=== PATIENT | female | born 1990 | race American Indian/Alaskan Native ===

== ENCOUNTER 2016-11-24 19:01 | Emergency (ER) | payer BC, MEDICAID ==
[2016-11-24 19:54] LABS: Basophils % (Auto) 0.3 % (0.0-1.8); Eosinophils % (Auto) 0.4 % (0.0-4.3); Hematocrit 39.4 % (30.3-42.9); Mean Corpuscular HGB Conc 33 % (30-34); Mean Corpuscular Hemoglobin 27 pg (28-32); Mean Corpuscular Volume 82 fl (79-97); Platelet Count 235 K/mm3 (140-440); Red Blood Count 4.79 M/mm3 (3.65-5.03); Red Cell Distribution Width 13.3 % (13.2-15.2); White Blood Count 11.3 K/mm3 (4.5-11.0)
[2016-11-24 20:09] LABS: Alanine Aminotransferase 18 units/L (7-56); Albumin 4.2 g/dL (3.9-5); Albumin/Globulin Ratio 1.4 %; Alkaline Phosphatase 58 units/L (35-129); Anion Gap 22 mmol/L; Blood Urea Nitrogen 10 mg/dL (7-17); Calcium 9.6 mg/dL (8.4-10.2); Carbon Dioxide 20 mmol/L (22-30); Chloride 95.9 mmol/L (98-107); Glucose 90 mg/dL (65-100); Lipase 25 units/L (13-60); Sodium 134 mmol/L (137-145); Total Protein 7.3 g/dL (6.3-8.2)
[2016-11-24 20:33] LABS: Bacteria,Urine 1+ /HPF (Negative); Bilirubin,Urine NEG (Negative); Blood,Urine NEG (Negative); Ketones,Urine NEG (Negative); Leukocyte Esterase,Urine NEG (Negative); Nitrite,Urine NEG (Negative); Protein,Urine <15 mg/dL mg/dL (Negative); Urobilinogen,Urine < 2.0 mg/dL (<2.0); WBC,Urine < 1.0 /HPF (0.0-6.0)
--- NOTE | 2016-11-24 22:11 | Ultrasound Report ---
FINAL REPORT EXAM: US OB TRANSVAGINAL HISTORY: pain, bleeding COMPARISONS: None. FINDINGS: Transvaginal grayscale, M-mode and color Doppler ultrasound evaluation of the pelvis Single living intrauterine with recorded cardiac activity of 166 beats per minute and crown-rump length of approximately 49 millimeters, which corresponds to estimated gestational age of 11 weeks 4 days and delivery date of 06/11/2017. Within the posterior uterine corpus having mass effect on the gestational sac there is a round heterogeneously hyperechoic mass measuring 2 x 2.1 x 3 cm. A small perigestational hemorrhage is also suggested involving less than 25 percent of the gestational sac surface area. The right ovary measures 3.8 x 2.6 x 2.1 cm and the left ovary measures 3.8 x 1.7 x 3.1 cm. Normal ovarian echotexture bilaterally. IMPRESSION: Single living intrauterine with estimated gestational age of 11 weeks 4 days corresponding to delivery date of 06/11/2017. A small perigestational hemorrhage involves less than 25 percent of the gestational sac surface area. Heterogeneous masslike morphology in the region of the posterior uterine body resulting in mass effect on the gestational sac. Differential diagnosis includes leiomyoma, gestational trophoblastic disease and failed twin . Short interval clinical and sonographic follow-up is recommended. Correlation with quantitative beta HCG is requested. MRI could be considered for persistence/enlargement of this finding. Notification initiated via Jason academic support assistant immediately following the exam.
--- NOTE | 2016-11-24 22:13 | Ultrasound Report ---
FINAL REPORT EXAM: US OB \T\lt; = 14 WEEKS FETUS HISTORY: pain, bleeding COMPARISONS: Transvaginal ultrasound of the same date. FINDINGS: Transabdominal grayscale and color Doppler ultrasound evaluation of the pelvis Single living intrauterine with recorded cardiac activity of 166 beats per minute and crown-rump length of approximately 49 millimeters, which corresponds to estimated gestational age of 11 weeks 4 days and delivery date of 06/11/2017. Within the posterior uterine corpus having mass effect on the gestational sac there is a round heterogeneously hyperechoic mass with suggested internal flow on color Doppler and a centrally hypoechoic to anechoic round region measuring 2 x 2.1 x 3 cm. A small perigestational hemorrhage is also suggested involving less than 25 percent of the gestational sac surface area. The right ovary measures 3.8 x 2.6 x 2.1 cm and the left ovary measures 3.8 x 1.7 x 3.1 cm. Normal ovarian echotexture bilaterally. IMPRESSION: Single living intrauterine with estimated gestational age of 11 weeks 4 days corresponding to delivery date of 06/11/2017. A small perigestational hemorrhage involves less than 25 percent of the gestational sac surface area. Heterogeneous masslike morphology in the region of the posterior uterine body resulting in mass effect on the gestational sac. Differential diagnosis includes leiomyoma, gestational trophoblastic disease and failed twin . Short interval clinical and sonographic follow-up is recommended. Correlation with quantitative beta HCG is requested. MRI could be considered for persistence/enlargement of this finding. Notification initiated via Jason software support technician immediately following the exam.
[2016-11-24] MEDS ORDERED: TYLENOL PO ONE (23:57)
--- NOTE | 2016-11-25 | Emergency Department Report ---
HPI - General Chief Complaint: Abdominal Pain Time Seen by Provider: 11/24/16 23:18 - HPI HPI: This is a 26-year-old -[place] female who presents to the emergency department with the complaint of a one-day history of lower abdominal pain that started earlier today while at work. The patient had one episode of which she had some spotting when she was wiping during urination but that has since stopped. She is at at about 10 weeks. She goes to [facility] [employer]. She is on vitamins. She denies any fever, nausea, vomiting, diarrhea, back pain, vaginal discharge, dysuria and denies any trauma. No recent travel or sick contacts at home. She otherwise denies any past medical history. ED Past Medical Hx - Past Medical History Previous Medical History?: No - Surgical History Past Surgical History?: No - Social History Smoking Status: Never Smoker Substance Use Type: None - Medications Home Medications: Home Medications Medication Instructions Recorded Confirmed Last Taken Type Ibuprofen [Motrin] 600 mg PO Q6H PRN #20 tablet 08/25/13 Unknown Rx Ondansetron [Zofran] 4 mg PO Q6HR PRN #10 tablet 08/25/13 Unknown Rx ED Review of Systems ROS: Stated complaint: 2 MONTHS PREG ABD PAIN Other details as noted in HPI Comment: All other systems reviewed and negative Constitutional: denies: chills, fever Eyes: denies: eye pain, eye discharge, vision change ENT: denies: ear pain, throat pain Respiratory: denies: cough, shortness of breath, wheezing Cardiovascular: denies: chest pain, palpitations Gastrointestinal: abdominal pain. denies: nausea, vomiting Genitourinary: denies: dysuria, discharge Musculoskeletal: denies: back pain, joint swelling, arthralgia Skin: denies: rash, lesions Neurological: denies: headache, weakness, paresthesias Physical Exam - Physical Exam Vital Signs: Vital Signs 11/24/16 11/24/16 19:20 22:07 Temperature 97.9 F 98.7 F Pulse Rate 86 72 Respiratory 20 18 Rate Blood Pressure 105/67 Blood Pressure 117/65 [Right] O2 Sat by Pulse 100 100 Oximetry Physical Exam: GENERAL: The patient is well-developed well-nourished. HEENT: Normocephalic. Atraumatic. Extraocular motions are intact. Patient has moist mucous membranes. Pupils equal reactive to light bilaterally. NECK: Supple. Trachea is midline. CHEST/LUNGS: Clear to auscultation. There is no respiratory distress noted. HEART/CARDIOVASCULAR: Regular. There is no tachycardia. There is no gallop rub or murmur. ABDOMEN: Abdomen is soft. No tenderness to palpation. No guarding or rebound tenderness. Patient has normal bowel sounds. There is no abdominal distention. SKIN: Skin is warm and dry. NEURO: The patient is awake, alert, and oriented. The patient is cooperative. The patient has no focal neurologic deficits. The patient has normal speech. MUSCULOSKELETAL: There is no tenderness or deformity. There is no limitation range of motion. There is no evidence of acute injury. ED Course Vital Signs 11/24/16 11/24/16 19:20 22:07 Temperature 97.9 F 98.7 F Pulse Rate 86 72 Respiratory 20 18 Rate Blood Pressure 105/67 Blood Pressure 117/65 [Right] O2 Sat by Pulse 100 100 Oximetry - Consultations Consultation #1: I spoke to the [employer] on-call, Dr. Danyelle Ramos, who listened to the case presentation and the imaging results and feels that the patient is safe for discharge home to follow up with her [employer] [employer] service tomorrow. 11/24/16 23:58 ED Medical Decision Making - Lab Data Result diagrams: 11/24/16 19:19 11/24/16 19:19 - Radiology Data Radiology results: report reviewed EXAM: US OB TRANSVAGINAL HISTORY: pain, bleeding COMPARISONS: None. FINDINGS: Transvaginal grayscale, M-mode and color Doppler ultrasound evaluation of the pelvis Single living intrauterine with recorded cardiac activity of 166 beats per minute and crown-rump length of approximately 49 millimeters, which corresponds to estimated gestational age of 11 weeks 4 days and delivery date of 06/11/2017. Within the posterior uterine corpus having mass effect on the gestational sac there is a round heterogeneously hyperechoic mass measuring 2 x 2.1 x 3 cm. A small perigestational hemorrhage is also suggested involving less than 25 percent of the gestational sac surface area. The right ovary measures 3.8 x 2.6 x 2.1 cm and the left ovary measures 3.8 x 1.7 x 3.1 cm. Normal ovarian echotexture bilaterally. IMPRESSION: Single living intrauterine with estimated gestational age of 11 weeks 4 days corresponding to delivery date of 06/11/2017. A small perigestational hemorrhage involves less than 25 percent of the gestational sac surface area. Heterogeneous masslike morphology in the region of the posterior uterine body resulting in mass effect on the gestational sac. Differential diagnosis includes leiomyoma, gestational trophoblastic disease and failed twin . Short interval clinical and sonographic follow-up is recommended. Correlation with quantitative beta HCG is requested. MRI could be considered for persistence/enlargement of this finding. - Medical Decision Making 26-year-old female presents with some lower abdominal pain and one episode of spotting. The ultrasound was done that shows a live intrauterine at about 11 weeks and 4 days. There is some heterogenous mass structure in the posterior uterus that is most likely a fibroid and is pressing against the gestational sac. There is a 25% subchorionic bleed. I spoke with [employer] [employer] on-call who recommends pelvic rest, no exertion, and following up with the [employer] service tomorrow. The labs are mostly unremarkable and do not show any signs of infection in the blood or urine, electrolyte abnormalities, renal insufficiency or any acute process. - Differential Diagnosis , threatened miscarriage, spontaneous miscarriage, fibroids Critical Care Time: No Critical care attestation.: If time is entered above; I have spent that time in minutes in the direct care of this critically ill patient, excluding procedure time. ED Disposition Clinical Impression: Threatened miscarriage Qualifiers: Weeks of gestation: 11 weeks Qualified Code(s): Z3A.11 - 11 weeks gestation of Fibroids Qualifiers: Uterine leiomyoma location: unspecified location Qualified Code(s): D25.9 - Leiomyoma of uterus, unspecified Disposition: DISCHARGED TO HOME OR SELFCARE Is pt being admited?: No Condition: Stable Instructions: Abdominal Pain (ED), (ED), Threatened Miscarriage (ED) , Uterine Fibroids (ED) Additional Instructions: Please follow-up with your [employer] tomorrow without fail. Please try not to exert herself. Do not lift anything heavier than 10 pounds. You need to have pelvic rest meaning there should be no sexual intercourse and nothing should be inserted into the vagina. You can take Tylenol every 4 hours, using weight- based dosing, as needed for discomfort. Continue with your vitamins. Otherwise do not take any medications that are not prescribed by a physician. Go to the closest emergency department with any worsening of her symptoms, vaginal bleeding or any acute distress. Referrals: PRIMARY CARE, [Primary Care Provider] - [facility] Time of Disposition: 00:02
[2016-11-25 00:22] VITALS: BP 132/76
== END 2016-11-25 00:24 | disposition home or self-care (01) ==
LOC: ED 19:01
DX: O20.0 Threatened abortion (principal); O34.11 Maternal care for benign tumor of corpus uteri, first trimester; Z3A.11 11 weeks gestation of pregnancy
CPT/HCPCS: 36415; 76801; 76817; 80053; 81001; 83690; 84702; 85025